=== PATIENT | female | born 1960 | race Caucasian/White ===

== ENCOUNTER 2017-12-23 07:31 | Outpatient (RCR) | payer BC, OTHER ==
[~2017-12-23 07:31] MED LIST: DURICEF500 MG PO; METFORMIN500 MG PO; PRINIVIL5 MG PO; SIMVASTATIN5 MG PO; SUPER EPA W/BO400 MG PO
== END 2017-12-24 07:42 | disposition home or self-care (01) ==
LOC: WSPT 07:31
DX: Z51.89 Encounter for other specified aftercare (principal)

== ENCOUNTER → 2020-07-11 | Outpatient (CLI) | payer OTHER | LOC: COL.VAS 13:34 | DX: I51.7 Cardiomegaly (principal); R06.02 Shortness of breath ==

== ENCOUNTER → 2021-01-12 | Outpatient (CLI) | payer OTHER | LOC: COL.PUL 09:46 | DX: R06.02 Shortness of breath (principal) | CPT/HCPCS: J7674 ==